=== PATIENT | male | born 1930 | race Caucasian/White ===

== ENCOUNTER 2017-10-08 10:50 | Inpatient (IN) | payer MEDICARE, MEDICAID ==
[~2017-10-08] VITALS: Ht 177.8 cm; Wt 60.0 kg
[2017-10-08] MEDS ORDERED: FAMO20 PO (11:15)
[2017-10-08] MEDS ORDERED: GABA-531 PO (11:15)
[2017-10-08] MEDS ORDERED: [UNRECOGNIZED DRUG - CODE] PO (11:15)
[2017-10-08] MEDS ORDERED: RISP3 PO (11:15)
[2017-10-08] MEDS ORDERED: TAMS0.4C32 PO (11:15)
[2017-10-08] MEDS ORDERED: DILT60 PO (11:15)
[2017-10-08] MEDS ORDERED: MULT-1203 PO (11:15)
[2017-10-08] MEDS ORDERED: CLOP75 PO (11:15)
[2017-10-08] MEDS ORDERED: QUET100T PO (11:15)
[2017-10-08] MEDS ORDERED: DIATRIZOATE MEGLU/SOD 660/100 MG/ML 120 ML BOTTLE ONE (11:45)
[2017-10-08 11:47] LABS: BASOPHILS % (AUTO) 0.2 % (0.0-2.0); EOSINOPHILS % (AUTO) 0.1 % (1.0-6.0); HEMATOCRIT 33.5 % (41-53); HEMOGLOBIN 11.1 g/dL (13.5-17.5); LYMPHOCYTES # (AUTO) 1.1 K/uL (1.0-4.8); LYMPHOCYTES % (AUTO) 5.1 % (22.0-44.0); MEAN CORPUSCULAR HEMOGLOBIN 31.7 pg (26.0-34.0); MEAN CORPUSCULAR HGB CONC 33.2 G/dL (31.0-37.0); MEAN CORPUSCULAR VOLUME 96 fL (80-100); MONOCYTES # (AUTO) 1.1 K/uL (0.1-1.0); MONOCYTES % (AUTO) 5.1 % (2.0-9.0); NEUTROPHILS # (AUTO) 19.9 K/uL (1.8-7.7); PLATELET COUNT (AUTO) 212 K/uL (150-450); RED BLOOD CELL COUNT(AUTO) 3.51 MIL/uL (4.50-5.90); RED CELL DISTRIBUTION WIDTH 22.5 % (11.5-14.5); WHITE BLOOD COUNT (AUTO) 22.2 K/uL (4.5-11.0)
[2017-10-08 11:49] LABS: NEUTROPHILS % (AUTO) 89.5 % (40.0-70.0); RBC MORPHOLOGY COMMENT ABNORMAL RBC MORPH
[2017-10-08 11:59] LABS: INR 1.1 (0.9-1.1); PROTHROMBIN TIME 11.5 SEC (9.4-11.6)
[2017-10-08 12:13] LABS: ANION GAP 16 mmol/L (8-16); CALCIUM, TOTAL 8.8 mg/dL (8.8-10.5); CARBON DIOXIDE 21 mmol/L (22-29); CHLORIDE 110 mmol/L (98-107); CREATININE 1.12 mg/dL (0.60-1.30); GLOMERULAR FILTR. RATE CALC > 60 mL/min (>60); POTASSIUM 3.8 mmol/L (3.5-5.1); SODIUM SERUM 147 mmol/L (136-145); UREA NITROGEN, BLOOD 61 mg/dL (7-18)
[2017-10-08 12:15] LABS: B-TYPE NATRIURETIC PEPTIDE 132 pg/mL (0-100)
[2017-10-08 12:16] LABS: ALANINE AMINOTRANSFERASE 33 U/L (12-78); ALBUMIN 3.1 g/dL (3.4-5.0); ASPARTATE AMINOTRANSFERASE 46 U/L (15-37); BILIRUBIN,TOTAL 1.1 mg/dL (0.1-1.0); TOTAL PROTEIN, SERUM 6.2 g/dL (6.4-8.2)
[2017-10-08 12:34] LABS: LACTIC ACID 2.5 mmol/L (0.4-2.0)
[2017-10-08] MEDS ORDERED: SODIUM CHLORIDE 0.9% 1,000 ML IV ONE ×4 (12:42→16:00)
[2017-10-08] MEDS ORDERED: PIPERACILLIN/TAZO 3.375 GM/D5W 50 ML IV ONE (12:45)
[2017-10-08 13:28] LABS: APPEARANCE,URINE TURBID (CLEAR); GLUCOSE, URINE (UA) NEGATIVE (NEGATIVE); KETONES,URINE TRACE mg/dL (NEGATIVE); LEUKOCYTE ESTERASE ,URINE LARGE (NEGATIVE); OCCULT BLOOD,URINE LARGE (NEGATIVE); PH,URINE 6.5 (5.0-8.0); PROTEIN,URINE SEE CONFIRM (NEGATIVE)
[2017-10-08] MEDS ORDERED: DILTIAZEM HCL 5 MG/ML 5 ML VIAL IVP ONE ×2 (13:30→15:45)
[2017-10-08 13:38] LABS: ADD UA MICROSCOPIC YES
[2017-10-08 13:41] LABS: REFLEX LACTIC ACID? YES YES
[2017-10-08 13:46] LABS: SQUAMOUS EPITHELIAL CELL,UR Few /LPF (None Seen); SULFOSALICYLIC ACID,URINE 3+ (Negative); WBC,URINE Full Field /HPF (0-5)
[2017-10-08] MEDS ORDERED: DILTIAZEM HCL CD 120 MG ER CAPSULE GT ONE (14:00)
[2017-10-08] MEDS ORDERED: ONDANSETRON HCL 4 MG/2 ML VIAL IVP PRN ×2 (14:15→22:45)
[2017-10-08 16:37] LABS: GLUCOSE,POINT OF CARE 92 MG/DL (70-110)
[2017-10-08 18:33] LABS: GLUCOSE,POINT OF CARE 101 MG/DL (70-110)
[2017-10-08 20:35] VITALS: BP 96/69
[2017-10-08] MEDS ORDERED: ACETAMINOPHEN 325 MG TABLET PO PRN (22:15)
[2017-10-08] MEDS: DEXTROSE 5%-0.9% SODIUM CHL 1,000 ML IV SCH (22:41)
[2017-10-08] MEDS: PIPERACILLIN/TAZO 3.375 GM/D5W 50 ML IV SCH (23:45)
[2017-10-09] VITALS: BP 122/56
[2017-10-09 04:00] VITALS: BP 153/58
[2017-10-09] MEDS: PIPERACILLIN/TAZO 3.375 GM/D5W 50 ML IV SCH ×4 (05:11→23:57)
[2017-10-09 05:15] LABS: ANION GAP 9 mmol/L (8-16); CALCIUM, TOTAL 7.6 mg/dL (8.8-10.5); CARBON DIOXIDE 22 mmol/L (22-29); CHLORIDE 118 mmol/L (98-107); GLOMERULAR FILTR. RATE CALC > 60 mL/min (>60); POTASSIUM 3.1 mmol/L (3.5-5.1); SODIUM SERUM 149 mmol/L (136-145); UREA NITROGEN, BLOOD 39 mg/dL (7-18)
[2017-10-09 05:27] LABS: LACTIC ACID 0.7 mmol/L (0.4-2.0)
[2017-10-09 05:29] LABS: BASOPHILS % (AUTO) 0.6 % (0.0-2.0); EOSINOPHILS % (AUTO) 1.2 % (1.0-6.0); HEMATOCRIT 26.3 % (41-53); HEMOGLOBIN 8.6 g/dL (13.5-17.5); LYMPHOCYTES # (AUTO) 1.4 K/uL (1.0-4.8); LYMPHOCYTES % (AUTO) 17.8 % (22.0-44.0); MEAN CORPUSCULAR HEMOGLOBIN 31.3 pg (26.0-34.0); MEAN CORPUSCULAR HGB CONC 32.8 G/dL (31.0-37.0); MEAN CORPUSCULAR VOLUME 96 fL (80-100); MONOCYTES # (AUTO) 0.8 K/uL (0.1-1.0); MONOCYTES % (AUTO) 10.7 % (2.0-9.0); NEUTROPHILS # (AUTO) 5.4 K/uL (1.8-7.7); NEUTROPHILS % (AUTO) 69.7 % (40.0-70.0); PLATELET COUNT (AUTO) 177 K/uL (150-450); RED BLOOD CELL COUNT(AUTO) 2.75 MIL/uL (4.50-5.90); RED CELL DISTRIBUTION WIDTH 23.2 % (11.5-14.5); WHITE BLOOD COUNT (AUTO) 7.7 K/uL (4.5-11.0)
[2017-10-09] MEDS: DEXTROSE 5%-0.9% SODIUM CHL 1,000 ML IV SCH ×3 (06:10→15:51)
[2017-10-09 07:37] LABS: RBC MORPHOLOGY COMMENT ABNORMAL RBC MORPH
[2017-10-09 08:00] VITALS: BP 114/52
[2017-10-09] MEDS ORDERED: DILTIAZEM HCL 60 MG TABLET PEG ONE (09:00)
[2017-10-09] MEDS: PROPAFENONE HCL 150 MG TABLET PEG SCH ×2 (09:37→21:41)
[2017-10-09] MEDS: PANTOPRAZOLE SODIUM 40 MG/VIAL IVP SCH (09:37)
[2017-10-09] MEDS: DILTIAZEM HCL 60 MG TABLET PO SCH (09:38)
[2017-10-09 12:00] VITALS: BP 90/46
[2017-10-09] MEDS ORDERED: POTASSIUM CHLORIDE 20 MEQ ER TABLET PO PRN (13:15)
[2017-10-09] MEDS: POTASSIUM CHL 10 MEQ/WATER 50 ML IV SCH ×4 (13:42→16:54)
[2017-10-09 16:00] VITALS: BP 96/46
[2017-10-09 20:00] VITALS: BP 99/57
[2017-10-10] VITALS: BP 140/49
[2017-10-10] MEDS: DEXTROSE 5%-0.9% SODIUM CHL 1,000 ML IV SCH ×2 (02:50→14:01)
[2017-10-10 04:00] VITALS: BP 136/47
[2017-10-10] MEDS: PIPERACILLIN/TAZO 3.375 GM/D5W 50 ML IV SCH ×4 (05:23→23:21)
[2017-10-10 06:07] LABS: ANION GAP 5 mmol/L (8-16); CALCIUM, TOTAL 7.8 mg/dL (8.8-10.5); CARBON DIOXIDE 24 mmol/L (22-29); CHLORIDE 121 mmol/L (98-107); CREATININE 0.84 mg/dL (0.60-1.30); GLOMERULAR FILTR. RATE CALC > 60 mL/min (>60); POTASSIUM 3.4 mmol/L (3.5-5.1); SODIUM SERUM 150 mmol/L (136-145); UREA NITROGEN, BLOOD 28 mg/dL (7-18)
[2017-10-10 06:20] LABS: BASOPHILS % (AUTO) 0.3 % (0.0-2.0); EOSINOPHILS % (AUTO) 2.9 % (1.0-6.0); HEMATOCRIT 26.2 % (41-53); HEMOGLOBIN 8.5 g/dL (13.5-17.5); LYMPHOCYTES # (AUTO) 1.2 K/uL (1.0-4.8); MEAN CORPUSCULAR HEMOGLOBIN 31.3 pg (26.0-34.0); MEAN CORPUSCULAR HGB CONC 32.5 G/dL (31.0-37.0); MEAN CORPUSCULAR VOLUME 96 fL (80-100); MONOCYTES # (AUTO) 0.8 K/uL (0.1-1.0); MONOCYTES % (AUTO) 10.1 % (2.0-9.0); NEUTROPHILS % (AUTO) 71.7 % (40.0-70.0); PLATELET COUNT (AUTO) 199 K/uL (150-450); RED BLOOD CELL COUNT(AUTO) 2.73 MIL/uL (4.50-5.90); RED CELL DISTRIBUTION WIDTH 22.7 % (11.5-14.5); WHITE BLOOD COUNT (AUTO) 8.3 K/uL (4.5-11.0)
[2017-10-10 08:00] VITALS: BP 137/69
[2017-10-10] MEDS: PANTOPRAZOLE SODIUM 40 MG/VIAL IVP SCH (08:25)
[2017-10-10] MEDS: PROPAFENONE HCL 150 MG TABLET PEG SCH ×4 (08:25→21:58)
[2017-10-10] MEDS: DILTIAZEM HCL 60 MG TABLET PO SCH ×3 (08:25→15:50)
[2017-10-10 08:27] LABS: RBC MORPHOLOGY COMMENT ABNORMAL RBC MORPH
[2017-10-10] MEDS ORDERED: SODIUM CHLORIDE 0.9% 250 ML IV ONE (09:45)
[2017-10-10] MEDS: POTASSIUM CHL 10 MEQ/WATER 50 ML IV PRN ×3 (09:57→12:01)
[2017-10-10] MEDS ORDERED: DIATRIZOATE MEGLU/SOD 660/100 MG/ML 120 ML BOTTLE PO ONE (11:30)
[2017-10-10] MEDS ORDERED: RYTH150 PO (11:34)
[2017-10-10 12:00] VITALS: BP 150/62
[2017-10-10] MEDS ORDERED: DIATRIZOATE MEGLU/SOD 660/100 MG/ML 120 ML BOTTLE ONE (12:11)
[2017-10-10] MEDS: ASPIRIN 81 MG CHEWABLE TABLET PO SCH ×2 (13:15→15:48)
[2017-10-10] MEDS ORDERED: LORazepam 2 MG/ML VIAL IVP ONE (15:00)
[2017-10-10 16:00] VITALS: BP 137/60
[2017-10-10] MEDS ORDERED: METOPROLOL TARTRATE 5 MG/5 ML VIAL IVP SCH (18:00)
[2017-10-10 20:00] VITALS: BP 132/48
[2017-10-11] VITALS (7 sets, daily range): BP systolic 128–162; BP diastolic 36–71
[2017-10-11] MEDS: DEXTROSE 5%-0.9% SODIUM CHL 1,000 ML IV SCH ×2 (01:55→12:56)
[2017-10-11 05:45] LABS: BASOPHILS # (AUTO) 0.15 K/uL (0.00-0.20); BASOPHILS % (AUTO) 1.4 % (0.0-2.0); EOSINOPHILS # (AUTO) 0.42 K/uL (0.00-0.70); EOSINOPHILS % (AUTO) 3.92 % (1.0-6.0); HEMATOCRIT 26.4 % (41-53); HEMOGLOBIN 8.7 g/dL (13.5-17.5); LYMPHOCYTES # (AUTO) 1.3 K/uL (1.0-4.8); LYMPHOCYTES % (AUTO) 11.9 % (22.0-44.0); MEAN CORPUSCULAR HEMOGLOBIN 31.4 pg (26.0-34.0); MEAN CORPUSCULAR HGB CONC 32.9 G/dL (31.0-37.0); MEAN CORPUSCULAR VOLUME 95 fL (80-100); MONOCYTES % (AUTO) 9.1 % (2.0-9.0); NEUTROPHILS # (AUTO) 7.9 K/uL (1.8-7.7); NEUTROPHILS % (AUTO) 73.7 % (40.0-70.0); RED BLOOD CELL COUNT(AUTO) 2.76 MIL/uL (4.50-5.90); RED CELL DISTRIBUTION WIDTH 23.4 % (11.5-14.5); WHITE BLOOD COUNT (AUTO) 10.8 K/uL (4.5-11.0)
[2017-10-11] MEDS: PIPERACILLIN/TAZO 3.375 GM/D5W 50 ML IV SCH ×4 (05:45→23:39)
[2017-10-11 05:57] LABS: ANION GAP 7 mmol/L (8-16); CALCIUM, TOTAL 7.9 mg/dL (8.8-10.5); CARBON DIOXIDE 23 mmol/L (22-29); CHLORIDE 120 mmol/L (98-107); CREATININE 0.69 mg/dL (0.60-1.30); GLOMERULAR FILTR. RATE CALC > 60 mL/min (>60); POTASSIUM 3.7 mmol/L (3.5-5.1); SODIUM SERUM 150 mmol/L (136-145); UREA NITROGEN, BLOOD 20 mg/dL (7-18)
[2017-10-11 07:27] LABS: PLATELET COUNT (AUTO) 209 K/uL (150-450)
[2017-10-11] MEDS: ASPIRIN 81 MG CHEWABLE TABLET PO SCH (08:15)
[2017-10-11] MEDS: PANTOPRAZOLE SODIUM 40 MG/VIAL IVP SCH (08:15)
[2017-10-11] MEDS: DILTIAZEM HCL 60 MG TABLET PO SCH (08:16)
[2017-10-11] MEDS: PROPAFENONE HCL 150 MG TABLET PEG SCH ×2 (08:16→20:52)
[2017-10-11 14:49] LABS: PHOSPHORUS 2.7 mg/dL (2.5-4.9)
[2017-10-12] VITALS (7 sets, daily range): BP systolic 99–116; BP diastolic 55–68
[2017-10-12] MEDS: PIPERACILLIN/TAZO 3.375 GM/D5W 50 ML IV SCH ×3 (05:40→18:23)
[2017-10-12 07:09] LABS: BASOPHILS # (AUTO) 0.05 K/uL (0.00-0.20); BASOPHILS % (AUTO) 0.5 % (0.0-2.0); EOSINOPHILS # (AUTO) 0.47 K/uL (0.00-0.70); EOSINOPHILS % (AUTO) 3.96 % (1.0-6.0); HEMATOCRIT 27.1 % (41-53); HEMOGLOBIN 8.8 g/dL (13.5-17.5); LYMPHOCYTES # (AUTO) 1.3 K/uL (1.0-4.8); LYMPHOCYTES % (AUTO) 11.3 % (22.0-44.0); MEAN CORPUSCULAR HEMOGLOBIN 31.5 pg (26.0-34.0); MEAN CORPUSCULAR HGB CONC 32.3 G/dL (31.0-37.0); MEAN CORPUSCULAR VOLUME 98 fL (80-100); MONOCYTES # (AUTO) 0.9 K/uL (0.1-1.0); MONOCYTES % (AUTO) 7.8 % (2.0-9.0); NEUTROPHILS % (AUTO) 76.5 % (40.0-70.0); PLATELET COUNT (AUTO) 237 K/uL (150-450); RED BLOOD CELL COUNT(AUTO) 2.78 MIL/uL (4.50-5.90); RED CELL DISTRIBUTION WIDTH 22.1 % (11.5-14.5); WHITE BLOOD COUNT (AUTO) 11.8 K/uL (4.5-11.0)
[2017-10-12 07:41] LABS: ALANINE AMINOTRANSFERASE 33 U/L (12-78); ANION GAP 6 mmol/L (8-16); ASPARTATE AMINOTRANSFERASE 36 U/L (15-37); BILIRUBIN,TOTAL 0.5 mg/dL (0.1-1.0); CALCIUM, TOTAL 7.5 mg/dL (8.8-10.5); CARBON DIOXIDE 26 mmol/L (22-29); CHLORIDE 116 mmol/L (98-107); CREATININE 0.66 mg/dL (0.60-1.30); GLOMERULAR FILTR. RATE CALC > 60 mL/min (>60); POTASSIUM 3.4 mmol/L (3.5-5.1); SODIUM SERUM 148 mmol/L (136-145); TOTAL PROTEIN, SERUM 4.8 g/dL (6.4-8.2); UREA NITROGEN, BLOOD 15 mg/dL (7-18)
[2017-10-12] MEDS: DILTIAZEM HCL 60 MG TABLET PO SCH (09:14)
[2017-10-12] MEDS: PROPAFENONE HCL 150 MG TABLET PEG SCH (09:14)
[2017-10-12] MEDS: ASPIRIN 81 MG CHEWABLE TABLET PO SCH (09:14)
[2017-10-12] MEDS: PANTOPRAZOLE SODIUM 40 MG/VIAL IVP SCH (09:14)
[2017-10-12 10:35] LABS: RBC MORPHOLOGY COMMENT DIMORPHIC RBC
[2017-10-12] MEDS: POTASSIUM CHL 10 MEQ/WATER 50 ML IV PRN ×3 (14:01→18:57)
[2017-10-12] MEDS: PROPAFENONE HCL 150 MG TABLET PO SCH (16:34)
[2017-10-12] MEDS ORDERED: DILTIAZEM HCL 30 MG TABLET PO SCH (18:00)
[2017-10-12] MEDS: DILTIAZEM HCL 30 MG TABLET PO SCH (18:23)
[2017-10-12] MEDS: SULFAMETHOX/TRIMETH DS 800-160 MG/TABLET PO SCH (20:04)
[2017-10-13] VITALS (7 sets, daily range): BP systolic 100–130; BP diastolic 43–57
[2017-10-13] MEDS: PROPAFENONE HCL 150 MG TABLET PO SCH ×3 (00:02→17:17)
[2017-10-13] MEDS: DILTIAZEM HCL 30 MG TABLET PO SCH ×4 (00:02→17:17)
[2017-10-13 06:46] LABS: BASOPHILS % (AUTO) 0.3 % (0.0-2.0); EOSINOPHILS % (AUTO) 3.5 % (1.0-6.0); HEMATOCRIT 26.7 % (41-53); HEMOGLOBIN 8.9 g/dL (13.5-17.5); LYMPHOCYTES # (AUTO) 1.7 K/uL (1.0-4.8); LYMPHOCYTES % (AUTO) 14.1 % (22.0-44.0); MEAN CORPUSCULAR HGB CONC 33.2 G/dL (31.0-37.0); MEAN CORPUSCULAR VOLUME 97 fL (80-100); MONOCYTES % (AUTO) 8.2 % (2.0-9.0); NEUTROPHILS # (AUTO) 8.9 K/uL (1.8-7.7); NEUTROPHILS % (AUTO) 73.9 % (40.0-70.0); PLATELET COUNT (AUTO) 234 K/uL (150-450); RED BLOOD CELL COUNT(AUTO) 2.77 MIL/uL (4.50-5.90); RED CELL DISTRIBUTION WIDTH 23.2 % (11.5-14.5); WHITE BLOOD COUNT (AUTO) 12.1 K/uL (4.5-11.0)
[2017-10-13 07:07] LABS: ALANINE AMINOTRANSFERASE 29 U/L (12-78); ANION GAP 7 mmol/L (8-16); ASPARTATE AMINOTRANSFERASE 31 U/L (15-37); BILIRUBIN,TOTAL 0.4 mg/dL (0.1-1.0); CALCIUM, TOTAL 7.7 mg/dL (8.8-10.5); CARBON DIOXIDE 26 mmol/L (22-29); CHLORIDE 114 mmol/L (98-107); CREATININE 0.74 mg/dL (0.60-1.30); GLOMERULAR FILTR. RATE CALC > 60 mL/min (>60); SODIUM SERUM 147 mmol/L (136-145); UREA NITROGEN, BLOOD 19 mg/dL (7-18)
[2017-10-13] MEDS ORDERED: DILTIAZEM HCL 60 MG TABLET PO SCH (09:00)
[2017-10-13 09:06] LABS: RBC MORPHOLOGY COMMENT ABNORMAL RBC MORPH
[2017-10-13] MEDS: PANTOPRAZOLE SODIUM 40 MG/VIAL IVP SCH (09:28)
[2017-10-13] MEDS: SULFAMETHOX/TRIMETH DS 800-160 MG/TABLET PO SCH ×2 (09:28→20:53)
[2017-10-13] MEDS: ASPIRIN 81 MG CHEWABLE TABLET PO SCH (09:28)
[2017-10-13] MEDS ORDERED: DIATRIZOATE MEGLU/SOD 660/100 MG/ML 120 ML BOTTLE ONE (13:06)
[2017-10-14] MEDS: PROPAFENONE HCL 150 MG TABLET PO SCH ×2 (00:14→08:00)
[2017-10-14 04:15] VITALS: BP 103/48
[2017-10-14] MEDS: DILTIAZEM HCL 30 MG TABLET PO SCH ×3 (06:09→12:29)
[2017-10-14 07:37] VITALS: BP 99/44
[2017-10-14] MEDS ORDERED: MULTIVITAMINS WITH MINERALS, THERAPEUTIC 15 ML UDCUP PEG SCH (09:00)
[2017-10-14] MEDS: SULFAMETHOX/TRIMETH DS 800-160 MG/TABLET PO SCH (10:33)
[2017-10-14] MEDS: ASPIRIN 81 MG CHEWABLE TABLET PO SCH (10:33)
[2017-10-14] MEDS: PANTOPRAZOLE SODIUM 40 MG/VIAL IVP SCH (10:33)
[2017-10-14 11:01] VITALS: BP 108/54
[2017-10-14] MEDS ORDERED: ASPI-556 PO (12:38)
[2017-10-14] MEDS ORDERED: DILT30 PO (12:39)
[2017-10-14] MEDS ORDERED: RYTH150 PO (12:41)
[2017-10-14] MEDS ORDERED: SULF1TAB42 PO (12:42)
[2017-10-14 14:59] VITALS: BP 129/55
== END 2017-10-14 15:40 | DRG 871 ==
LOC: EMS 10:52 → ICU 15:08 → 5N 15:08 → ICUN 10-10 18:05 → 5N 10-11 15:25
PROVIDERS: ADMIT Internal Medicine; ATTEND Internal Medicine
PROC: 0D20XUZ Change Feeding Device in Upper Intestinal Tract, External Approach (ICD-10-PCS; principal; 2017-10-13)
DX: A41.9 Sepsis, unspecified organism (principal); E43 Unspecified severe protein-calorie malnutrition; E87.0 Hyperosmolality and hypernatremia; E87.2 Acidosis; F20.9 Schizophrenia, unspecified; I48.91 Unspecified atrial fibrillation; E11.9 Type 2 diabetes mellitus without complications; Z93.1 Gastrostomy status; R13.10 Dysphagia, unspecified; N12 Tubulo-interstitial nephritis, not specified as acute or chronic; Z68.1 Body mass index [BMI] 19.9 or less, adult; B96.4 Proteus (mirabilis) (morganii) as the cause of diseases classified elsewhere; R65.10 Systemic inflammatory response syndrome (SIRS) of non-infectious origin without acute organ dysfunction; F32.9 Major depressive disorder, single episode, unspecified; E86.0 Dehydration; E87.6 Hypokalemia; F03.90 Unspecified dementia, unspecified severity, without behavioral disturbance, psychotic disturbance, mood disturbance, and anxiety; I10 Essential (primary) hypertension; N40.0 Benign prostatic hyperplasia without lower urinary tract symptoms; K21.9 Gastro-esophageal reflux disease without esophagitis; R62.7 Adult failure to thrive; Z79.02 Long term (current) use of antithrombotics/antiplatelets; Z79.899 Other long term (current) drug therapy; Z86.19 Personal history of other infectious and parasitic diseases
CPT/HCPCS: 36245; 49450; 51702; 74000; 76770; 82308; 82962; 83605; 83735; 84100; 84132; 87040; 87070; 87081; 87086; 87205; 93005; 93306; 96361; 96365; 96375; 96376; 99291; C9113; J2060; J2405; J2543; J3480; J3490; J7030; J7042; J7050